=== PATIENT | female | born 2000 | race Two or more races ===

== ENCOUNTER 2021-09-23 09:35 | Emergency (ER) | payer OTHER ==
[~2021-09-23] VITALS: Ht 162.6 cm; Wt 86.2 kg
[2021-09-23] MEDS ORDERED: SYNTHROID175 MCG PO (10:03)
[2021-09-23] MEDS ORDERED: INTESTINEX680 M1 PO (13:06)
[2021-09-23] MEDS ORDERED: LEVOFLOXACIN500 MG PO (13:06)
== END 2021-09-23 13:32 | disposition home or self-care (01) ==
LOC: ER 09:35
DX: B34.9 Viral infection, unspecified (principal); Z03.818 Encounter for observation for suspected exposure to other biological agents ruled out

== ENCOUNTER 2022-01-22 17:43 | Emergency (ER) | payer OTHER ==
[~2022-01-22] VITALS: Ht 162.6 cm; Wt 86.2 kg
[~2022-01-22 17:43] MED LIST: INTESTINEX680 M1 PO; LEVOFLOXACIN500 MG PO; SYNTHROID175 MCG PO
[2022-01-22] MEDS ORDERED: PRENATAL + DHA1 EAC1 PO (17:47)
== END 2022-01-22 20:30 | disposition home or self-care (01) ==
LOC: ER 17:43
DX: O20.9 Hemorrhage in early pregnancy, unspecified (principal); Z3A.09 9 weeks gestation of pregnancy; Z37.0 Single live birth; Z88.8 Allergy status to other drugs, medicaments and biological substances

== ENCOUNTER 2022-01-23 16:53 | Emergency (ER) | payer OTHER ==
[~2022-01-23] VITALS: Ht 162.6 cm; Wt 86.2 kg
[~2022-01-23 16:53] MED LIST changes: +PRENATAL + DHA1 EAC1 PO
== END 2022-01-24 00:03 | disposition home or self-care (01) ==
LOC: ER 16:53
DX: O20.9 Hemorrhage in early pregnancy, unspecified (principal); Z3A.09 9 weeks gestation of pregnancy; Z37.0 Single live birth; Z88.8 Allergy status to other drugs, medicaments and biological substances

== ENCOUNTER 2022-08-16 14:14 | Inpatient (IN) | payer OTHER ==
[~2022-08-16] VITALS: Ht 162.6 cm; Wt 95.3 kg
== END 2022-08-31 11:34 | disposition home or self-care (01) | DRG 807 ==
LOC: OB/GYN 08-28 12:45 → LDR 08-28 20:51 → OB/GYN 08-29 09:15
PROVIDERS: ADMIT Specialist; ATTEND Specialist
PROC: 4A1HXCZ Monitoring of Products of Conception, Cardiac Rate, External Approach (ICD-10-PCS; 2022-08-28)
PROC: 10E0XZZ Delivery of Products of Conception, External Approach (ICD-10-PCS; principal; 2022-08-29)
PROC: 0UQG7ZZ Repair Vagina, Via Natural or Artificial Opening (ICD-10-PCS; 2022-08-29)
DX: O71.4 Obstetric high vaginal laceration alone (principal); Z37.0 Single live birth; Z3A.40 40 weeks gestation of pregnancy; Z20.822 Contact with and (suspected) exposure to COVID-19

== ENCOUNTER 2024-06-18 14:31 | Inpatient (IN) | payer OTHER ==
[~2024-06-18] VITALS: Ht 162.6 cm; Wt 86.6 kg
--- NOTE | 2024-06-18 15:13 | NUR ---
SE RECIBE PACIENTE ALERTA Y ORIENTADA X 3 ESFERAS LA CUAL INDICA QUE TIENE 9 SEMANAS DE GESTACION Y QUE HOY COMENZO CON SANGRADO VAGINAL.
--- NOTE | 2024-06-18 16:21 | NUR ---
SE ORIENTA A PACIENTE SOBRE TX MEDICO, REFIERE ENTENDER. SE REALIZAN MUESTRAS DE LABORATORIO BAJO MEDIDAS ASEPTICAS. SE COORDINA SONOGRAMA. PACIENTE MANEJADA POR . PENDIENTE RE-EVALUACION MEDICA.
[2024-06-18 16:41] LABS: URINE BILIRRUBIN Negative (NEGATIVE); URINE BLOOD Large; URINE COLOR Yellow; URINE GLUCOSE Negative (NEGATIVE); URINE KETONE Negative (NEGATIVE); URINE LEUKOCYTE Small; URINE NITRATE Negative; URINE PROTEIN Trace (NEGATIVE)
[2024-06-18 16:45] LABS: URINE BACTERIA 1482.8 uL (0.0-1933); URINE EPITHELIAL CELLS 47.9 uL (0.0-38.8); URINE RBC 2880.6 uL (0.0-20.8); URINE WBC 64.6 uL (0.0-23.2)
[2024-06-18 16:50] LABS: HEMATOCRIT 33.8 % (36.0-45.00); HEMOGLOBIN 11.3 g/dL (12.0-15.00); MEAN CELL VOLUME 79.2 fL (80.00-100.00); MEAN CORPUSCULAR HEMOGLOBIN 26.5 pg (27.00-32.0); MEAN CORPUSCULAR HGB CONC 33.5 g/dl (32.0-36.0); PLATELET COUNT 294 K/uL (150-450); RED BLOOD COUNT 4.27 M/uL (4.00-6.00); RED CELL DISTRIBUTION WIDTH 17.1 % (11.5-14.5)
[2024-06-18 17:06] LABS: INR 1.03; PARTIAL THROMBOPLASTIN TIME 29.2 SECONDS (22.0-34.0); PROTHROMBIN TIME 10.8 SECONDS (9.0-11.5)
[2024-06-18 17:13] LABS: URINE APPEARANCE CLEAR
[2024-06-18 17:27] LABS: ALBUMIN 3.7 gm/dL (3.4-5.0); BILIRUBIN TOTAL 0.4 mg/dL (0.3-1.2); CALCIUM 9.1 mg/dL (8.5-10.1); CREATININE SERUM 0.71 mg/dL (0.55-1.02); GFR 101.13; POTASSIUM 3.56 mEq/L (3.5-5.1); TOTAL PROTEIN 7.7 gm/dL (6.4-8.2)
[2024-06-18] MEDS ORDERED: CEFAZOLIN SODIUM 1,000 MG VIAL IV SCH (18:15)
[2024-06-18] MEDS ORDERED: RINGERS SOLUTION,LACTATED 1,000 ML IV SCH (18:15)
[2024-06-18] MEDS ORDERED: CEFAZOLIN SODIUM 1,000 MG VIAL ONE (18:46)
[2024-06-18] MEDS ORDERED: POVIDONE-IODINE 118 ML BOTT TOP ONE (22:15)
[2024-06-18] MEDS ORDERED: CHLORHEXIDINE GLUCONATE 120 ML BOTTLE TOP ONE (22:15)
== END 2024-06-19 04:10 | disposition home or self-care (01) | DRG 770 ==
LOC: ER 14:31 → SEC-K 18:17
PROVIDERS: Nurse Practitioner Family; ADMIT Specialist; ATTEND Specialist
PROC: 10D17ZZ Extraction of Products of Conception, Retained, Via Natural or Artificial Opening (ICD-10-PCS; 2024-06-18)
PROC: BU4CZZZ Ultrasonography of Uterus and Ovaries (ICD-10-PCS; principal; 2024-06-18 21:45)
DX: O03.4 Incomplete spontaneous abortion without complication (principal); Z20.822 Contact with and (suspected) exposure to COVID-19

== ENCOUNTER 2024-10-27 11:54 | Emergency (ER) | payer OTHER ==
[~2024-10-27] VITALS: Ht 162.6 cm; Wt 84.4 kg
[2024-10-27] MEDS ORDERED: SYNTHROID137 MCG PO (12:48)
[2024-10-27] MEDS ORDERED: CEFTRIAXONE SODIUM 1,000 MG VIAL IM STA (15:02)
[2024-10-27] MEDS ORDERED: METHYLPREDNISOLONE SOD SUCC 125 MG VIAL IM STA (15:02)
== END 2024-10-27 15:45 | disposition home or self-care (01) ==
LOC: ER 11:56
DX: J32.9 Chronic sinusitis, unspecified (principal); Z88.8 Allergy status to other drugs, medicaments and biological substances

== ENCOUNTER 2025-07-17 04:51 | Inpatient (IN) | payer OTHER ==
[~2025-07-17] VITALS: Ht 162.6 cm; Wt 99.8 kg
[2025-07-17] VITALS (7 sets, daily range): BP systolic 95–137; BP diastolic 62–83
[~2025-07-17 04:51] MED LIST changes: +SYNTHROID137 MCG PO
[2025-07-17] MEDS ORDERED: OXYTOCIN 20 UNITS/500ML RL PIGGYBAG IV ONE (06:41)
[2025-07-17] MEDS ORDERED: OXYTOCIN 500 ML IV SCH (06:45)
[2025-07-17] MEDS ORDERED: RINGERS SOLUTION,LACTATED 1,000 ML IV SCH (06:45)
[2025-07-17 07:13] LABS: URINE APPEARANCE Clear; URINE BILIRRUBIN Small (NEGATIVE); URINE BLOOD Negative; URINE COLOR Dark Yellow; URINE GLUCOSE Negative (NEGATIVE); URINE LEUKOCYTE Small; URINE NITRATE Negative; URINE PROTEIN Negative (NEGATIVE); URINE UROBILINOGEN 1.0 E.U./dl
[2025-07-17 07:17] LABS: URINE BACTERIA 1983.6 uL (0.0-1933); URINE EPITHELIAL CELLS 112.3 uL (0.0-38.8); URINE RBC 2.3 uL (0.0-20.8); URINE WBC 56.4 uL (0.0-23.2)
[2025-07-17 07:27] LABS: URINE CAST 0.58 uL (0.0-1.40); URINE KETONE 40 (NEGATIVE)
[2025-07-17 07:29] LABS: BASO % 0.5 % (0.1-1.2); EOS # 0.06 (0.04-0.54); EOS % 0.9 % (0.7-7.0); LYMPH # 1.71 (1.18-3.74); LYMPH % 25.9 % (19.3-53.1); MEAN PLATELET VOLUME 10.70 fl (9.4-12.4); MONO # 0.60 (0.24-0.82); MONO % 9.1 % (4.7-12.5); NEUT # 4.06 (1.56-6.13); NEUT % 61.3 % (34.0-71.1); RED CELL DISTRIBUTION WIDTH 13.4 % (11.6-14.4)
[2025-07-17 07:34] LABS: INR 0.96
[2025-07-17 07:42] LABS: ALT/SGPT 23.0 U/L (12-78); AST/SGOT 21.0 U/L (15-37); BILIRUBIN TOTAL 0.69 mg/dL (0.3-1.2); BUN CREA RATIO 17.0 (7.0-25.0); CREATININE SERUM 0.35 mg/dL (0.55-1.02); GFR 226.88; GLOBULINA 3.6 G/DL (2.4-3.5); GLUCOSE FASTING 75.0 mg/dL (65-100); OSMOLALITY SERUM 276.0 MOSM/KG (275-295)
[2025-07-17] MEDS ORDERED: CHLORHEXIDINE GLUCONATE 120 ML BOTTLE TOP ONE ×2 (12:00→15:30)
[2025-07-17] MEDS ORDERED: LIDOCAINE HCL 1% 10ML VIAL ONE (12:00)
[2025-07-17] MEDS ORDERED: ERYTHROMYCIN BASE OPHT 1GM EACH TUBE OP ONE ×2 (12:00→15:30)
[2025-07-17] MEDS ORDERED: MORPHINE SULFATE 4 MG/ML VIAL IV STA (15:06)
[2025-07-17] MEDS ORDERED: NALOXONE HCL 0.4 MG/ML AMPUL ONE (15:08)
[2025-07-17] MEDS ORDERED: LIDOCAINE HCL 1% 10ML VIAL IJ ONE (15:30)
[2025-07-17] MEDS ORDERED: ACETAMINOPHEN 500 MG GEL..CAP PO PRN (15:30)
[2025-07-17] MEDS ORDERED: NALOXONE HCL 0.4 MG/ML AMPUL IM ONE (15:45)
[2025-07-17] MEDS ORDERED: BENZOCAINE/MENTHOL 90 ML BOTTLE TOP SCH (17:00)
[2025-07-17] MEDS ORDERED: HYDROCORTISONE 2.5% 30 GM TUBE RECTAL SCH (17:00)
[2025-07-18 00:12] VITALS: BP 96/64
[2025-07-18 01:44] LABS: BASO % 0.2 % (0.1-1.2); EOS # 0.04 (0.04-0.54); EOS % 0.3 % (0.7-7.0); LYMPH # 1.97 (1.18-3.74); LYMPH % 16.3 % (19.3-53.1); MEAN PLATELET VOLUME 10.40 fl (9.4-12.4); MONO # 1.28 (0.24-0.82); MONO % 10.6 % (4.7-12.5); NEUT # 8.68 (1.56-6.13); NEUT % 71.6 % (34.0-71.1); RED CELL DISTRIBUTION WIDTH 13.3 % (11.6-14.4)
[2025-07-18 08:00] VITALS: BP 114/74
[2025-07-18 17:20] VITALS: BP 89/58
[2025-07-19] VITALS: BP 108/73
[2025-07-19 08:00] VITALS: BP 107/65
== END 2025-07-19 15:23 | disposition home or self-care (01) | DRG 807 ==
LOC: OB/GYN 04:51 → LDR 04:51 → OB/GYN 08:04
PROVIDERS: ADMIT Specialist; ATTEND Specialist
PROC: 10E0XZZ Delivery of Products of Conception, External Approach (ICD-10-PCS; principal; 2025-07-17)
PROC: 0HQ9XZZ Repair Perineum Skin, External Approach (ICD-10-PCS; 2025-07-17)
PROC: 4A1HXCZ Monitoring of Products of Conception, Cardiac Rate, External Approach (ICD-10-PCS; 2025-07-17)
DX: O70.0 First degree perineal laceration during delivery (principal); Z37.0 Single live birth; Z3A.37 37 weeks gestation of pregnancy